=== PATIENT | female | born 1995 | race Hispanic/Latino ===

== ENCOUNTER 2022-11-13 06:59 | Emergency (ER) | payer OTHER ==
[2022-11-13] MEDS ORDERED: Ipratropium/Albuterol 3 ML NEB ONE (07:29)
[2022-11-13] MEDS ORDERED: Dexamethasone 4 MG TAB ONE (07:39)
== END 2022-11-13 08:03 | disposition home or self-care (01) ==
LOC: MADERS 06:59
DX: J45.901 Unspecified asthma with (acute) exacerbation (principal); J30.9 Allergic rhinitis, unspecified
CPT/HCPCS: J7620; J8540